=== PATIENT | female | born 1935 | race Caucasian/White ===

== ENCOUNTER 2024-06-27 17:28 | Inpatient (IN) | payer MEDICARE, OTHER ==
[~2024-06-27] VITALS: Ht 152.4 cm; Wt 78.2 kg
[~2024-06-27 17:28] MED LIST: ACET-3117 PO; AMLO-212 PO; ATOR80TA PO; BLOO-668 IN; CARV6.252 PO; CEFT1VIA14 IV; GLIP10TA21 PO; INSU100V28 SQ; LOSA100T31 PO; METF-442 PO; PANT40TA49 PO; SERT50TA PO
[2024-06-27] MEDS ORDERED: [UNRECOGNIZED DRUG - CODE] IV (18:07)
[2024-06-27] MEDS ORDERED: ASPI-495 PO (18:15)
[2024-06-27] MEDS ORDERED: ALBU2.5V38 IH (18:15)
[2024-06-27] MEDS ORDERED: CLOP75TA15 PO (18:35)
[2024-06-27] MEDS ORDERED: DICY10CA13 PO (18:38)
[2024-06-27 18:41] VITALS: BP 158/51; TEMP 99.6; O2SAT 93
[2024-06-27] MEDS ORDERED: IV 0.45% SODIUM CHLORIDE 1000 ML BAG IV SCH (19:15)
[2024-06-27] MEDS ORDERED: ALBUTEROL SULFATE 2.5 MG/3 ML NEBU IH PRN (19:15)
[2024-06-27] MEDS ORDERED: ONDANSETRON 4 MG/2 ML VIAL IV PRN (20:15)
[2024-06-27] MEDS ORDERED: hydrALAZINE HCL 20 MG/1 ML VIAL IV PRN (20:30)
[2024-06-27] MEDS ORDERED: DEXTROSE 50% 50 ML DISP.SYRIN IV PRN (20:45)
[2024-06-27 21:03] VITALS: BP 139/41; TEMP 98.7; O2SAT 96
[2024-06-27] MEDS: ATORVASTATIN 40 MG TABLET PO SCH (21:40)
[2024-06-27] MEDS: AMLODIPINE 5 MG TABLET PO SCH (21:41)
[2024-06-27] MEDS ORDERED: levoFLOXacin 250MG /D5W 50 ML IV ONE (21:42)
[2024-06-27] MEDS: BLOOD SUGAR DIAGNOSTIC 1 EACH STRIP VI SCH (23:41)
[2024-06-27] MEDS: INSULIN REGULAR, HUMAN 1000 UNIT/10 ML VIAL SQ PRN (23:48)
[2024-06-28] VITALS (10 sets, daily range): BP systolic 94–142; BP diastolic 35–58; TEMP 97.4–98.5; O2SAT 70–99
[2024-06-28 01:07] LABS: *BLOOD, URINE 2+ (NEGATIVE); *CLARITY,URINE CLEAR (CLEAR); *COLOR,URINE YELLOW (YELLOW); *KETONES,URINE TRACE (NEGATIVE); *PROTEIN,URINE 2+ (NEGATIVE); *UROBILINOGEN,URINE 0.2 E.U./dl (NORMAL); LEUKOCYTE ESTERASE ,URINE NEGATIVE (NEGATIVE); NITRITE, URINE NEGATIVE (NEGATIVE); UGLUCOSE TRACE (NEGATIVE)
[2024-06-28 01:10] LABS: *BILIRUBIN,URIN 1+ (NEGATIVE)
[2024-06-28 01:14] LABS: BACTERIA,URINE MANY /HPF (NONE SEEN); SQUAMOUS EPITHELIAL CELL,UR MODERATE /HPF (NONE SEEN); URINE AMORPHOUS URATE MODERATE /HPF
[2024-06-28 01:15] LABS: COARSE GRANULAR CASTS,URINE 0-3 /LPF
[2024-06-28] MEDS ORDERED: ACETAMINOPHEN 325 MG TABLET PO PRN (05:30)
[2024-06-28] MEDS: IV 1/2NS 1000 ML 1,000 ML IV PRN (05:34)
[2024-06-28 06:24] LABS: ABG BASE EXCESS 0.8 mmol/L (-2.0-3.0); ABG HCO3 26.7 mmol/L (21.0-28.0); ABG PH 7.354 (7.350-7.450); ABG PO2 87.5 mmHg (83.0-108.0); ABG SITE RIGHT BRACHIAL; ABG TOTAL HEMOGLOBIN 9.7 G/dL (12.0-16.0); AaDO2 96.2 mmHg; MetHb 0.3 % (0.0-1.5); O2Hb 96.1 % (94.0-98.0)
[2024-06-28 07:27] LABS: BASOPHILS % (AUTO) 0.3 % (0.0-2.0); EOSINOPHILS # (AUTO) 0.2 K/uL (0.0-0.7); EOSINOPHILS % (AUTO) 2.3 % (0.0-7.0); HEMATOCRIT 26.4 % (31.2-41.9); HEMOGLOBIN 9.2 g/dL (10.9-14.3); LYMPHOCYTES # (AUTO) 1.4 K/uL (0.8-4.8); LYMPHOCYTES % (AUTO) 17.4 % (20.5-51.5); MEAN CORPUSCULAR HEMOGLOBIN 33.9 uug (24.7-32.8); MEAN CORPUSCULAR HGB CONC 35 g/dL (32.3-35.6); MEAN CORPUSCULAR VOLUME 97.4 fL (75.5-95.3); MONOCYTES # (AUTO) 0.7 K/uL (0.1-1.30); MONOCYTES % (AUTO) 8.9 % (0.0-11.0); NEUTROPHILS # (AUTO) 5.8 K/uL (1.8-8.9); NEUTROPHILS % (AUTO) 71.1 % (38.5-71.5); PLATELET COUNT (AUTO) 264 K/uL (179-408); RED BLOOD CELL COUNT(AUTO) 2.71 MIL/uL (3.63-4.92); WHITE BLOOD COUNT (AUTO) 8.1 K/uL (3.8-11.8)
[2024-06-28 07:43] LABS: DIFFERENTIAL COMMENT 1
[2024-06-28 07:56] LABS: ALANINE AMINOTRANSFERASE 7 U/L (14-59); ALKALINE PHOSPHATASE 78 U/L (50-136); ASPARTATE AMINOTRANSFERASE 9 U/L (15-37); BILIRUBIN,TOTAL 0.4 mg/dL (0.2-1.0); CALCIUM 7.6 mg/dL (8.5-10.1); CARBON DIOXIDE 29 mmol/L (21-32); CHLORIDE 106 mmol/L (98-107); CREATININE 1.5 mg/dL (0.6-1.3); GLUCOSE 86 mg/dL (74-106); MAGNESIUM 2.9 mg/dL (1.8-2.4); NT-PRO BNP 1629 pg/mL (0-125); PHOSPHOROUS 2.4 mg/dL (2.5-4.9); POTASSIUM 4.3 mmol/L (3.5-5.1); SODIUM SERUM 142 mmol/L (136-145); TOTAL PROTEIN, SERUM 5.7 g/dL (6.4-8.2); UREA NITROGEN, BLOOD 41 mg/dL (7-18)
[2024-06-28] MEDS: SERTRALINE HCL 50 MG TABLET PO SCH (08:26)
[2024-06-28] MEDS: glipiZIDE XL 5 MG TABCR PO SCH (08:26)
[2024-06-28] MEDS: CARVEDILOL 6.25 MG TABLET PO SCH (08:27)
[2024-06-28] MEDS: PANTOPRAZOLE SODIUM 40 MG TABLET.DR PO SCH (08:27)
[2024-06-28] MEDS: CLOPIDOGREL 75 MG TABLET PO SCH (08:28)
[2024-06-28] MEDS: ASPIRIN EC 81 MG TABLET.DR PO SCH (08:28)
[2024-06-28] MEDS ORDERED: PANTOPRAZOLE SODIUM 40 MG VIAL IV SCH (09:00)
[2024-06-28] MEDS: methylPREDNISolone SOD SUCC 40 MG/ML VIAL IV SCH (11:49)
[2024-06-28] MEDS: ALBUTEROL SULFATE 2.5 MG/3 ML NEBU NEB SCH (14:02)
[2024-06-28] MEDS: IPRATROPIUM BROMIDE 0.5 MG/2.5 ML NEBU NEB SCH (14:02)
[2024-06-28] MEDS ORDERED: NEUTRA PHOS PACKET PO SCH (15:30)
[2024-06-29] VITALS (11 sets, daily range): BP systolic 128–144; BP diastolic 42–49; TEMP 96.3–98.8; O2SAT 80–99
[2024-06-29 06:44] LABS: HEMATOCRIT 24.1 % (31.2-41.9); HEMOGLOBIN 8.5 g/dL (10.9-14.3); LYMPHOCYTES # (AUTO) 0.5 K/uL (0.8-4.8); LYMPHOCYTES % (AUTO) 5.9 % (20.5-51.5); MEAN CORPUSCULAR HEMOGLOBIN 34.2 uug (24.7-32.8); MEAN CORPUSCULAR HGB CONC 35 g/dL (32.3-35.6); MEAN CORPUSCULAR VOLUME 96.9 fL (75.5-95.3); MONOCYTES % (AUTO) 0.5 % (0.0-11.0); NEUTROPHILS # (AUTO) 7.3 K/uL (1.8-8.9); NEUTROPHILS % (AUTO) 93.6 % (38.5-71.5); PLATELET COUNT (AUTO) 253 K/uL (179-408); RED CELL DISTRIBUTION WIDTH 12.5 % (12.3-17.7); WHITE BLOOD COUNT (AUTO) 7.8 K/uL (3.8-11.8)
[2024-06-29 06:56] LABS: DIFFERENTIAL COMMENT 1; RED BLOOD CELL COUNT(AUTO) 2.49 MIL/uL (3.63-4.92)
[2024-06-29 07:03] LABS: CALCIUM 7.4 mg/dL (8.5-10.1); CARBON DIOXIDE 26 mmol/L (21-32); CHLORIDE 101 mmol/L (98-107); CREATININE 1.3 mg/dL (0.6-1.3); GLUCOSE 243 mg/dL (74-106); MAGNESIUM 2.6 mg/dL (1.8-2.4); PHOSPHOROUS 2.4 mg/dL (2.5-4.9); POTASSIUM 4.9 mmol/L (3.5-5.1); SODIUM SERUM 132 mmol/L (136-145); UREA NITROGEN, BLOOD 48 mg/dL (7-18)
[2024-06-29 07:12] LABS: LIPASE 32 U/L (16-77)
[2024-06-29 07:52] LABS: ABG BASE EXCESS -0.8 mmol/L (-2.0-3.0); ABG PCO2 29.4 mmHg (32.0-45.0); ABG PH 7.492 (7.350-7.450); ABG PO2 121.7 mmHg (83.0-108.0); ABG SITE LEFT BRACHIAL; ABG TOTAL HEMOGLOBIN 9.1 G/dL (12.0-16.0); AaDO2 98.7 mmHg; COHb 0.3 % (0.5-1.5); MetHb 0.2 % (0.0-1.5)
[2024-06-29] MEDS: NEUTRA PHOS PACKET PO ONE (17:20)
[2024-06-29] MEDS: GLUCERNA SHAKE 237 ML CAN PO SCH (17:21)
[2024-06-29] MEDS: methylPREDNISolone SOD SUCC 40 MG/ML VIAL IV SCH (20:18)
[2024-06-29] MEDS ORDERED: DEXTROSE 50% 50 ML DISP.SYRIN IV PRN (21:15)
[2024-06-29] MEDS: BLOOD SUGAR DIAGNOSTIC 1 EACH STRIP VI SCH (21:23)
[2024-06-29] MEDS: INSULIN REGULAR, HUMAN 1000 UNIT/10 ML VIAL SQ PRN (21:24)
[2024-06-30] VITALS (11 sets, daily range): BP systolic 123–135; BP diastolic 39–50; TEMP 97.2–98.5; O2SAT 95–100
[2024-06-30 07:36] LABS: BASOPHILS % (AUTO) 0.1 % (0.0-2.0); HEMATOCRIT 23.1 % (31.2-41.9); HEMOGLOBIN 8.2 g/dL (10.9-14.3); LYMPHOCYTES # (AUTO) 0.6 K/uL (0.8-4.8); LYMPHOCYTES % (AUTO) 5.9 % (20.5-51.5); MEAN CORPUSCULAR HEMOGLOBIN 33.7 uug (24.7-32.8); MEAN CORPUSCULAR HGB CONC 35 g/dL (32.3-35.6); MEAN CORPUSCULAR VOLUME 95.2 fL (75.5-95.3); MONOCYTES # (AUTO) 0.3 K/uL (0.1-1.30); MONOCYTES % (AUTO) 2.8 % (0.0-11.0); NEUTROPHILS # (AUTO) 8.9 K/uL (1.8-8.9); NEUTROPHILS % (AUTO) 91.2 % (38.5-71.5); PLATELET COUNT (AUTO) 269 K/uL (179-408); RED CELL DISTRIBUTION WIDTH 12.4 % (12.3-17.7); WHITE BLOOD COUNT (AUTO) 9.8 K/uL (3.8-11.8)
[2024-06-30 07:38] LABS: DIFFERENTIAL COMMENT 1; RED BLOOD CELL COUNT(AUTO) 2.43 MIL/uL (3.63-4.92)
[2024-06-30 07:59] LABS: ALANINE AMINOTRANSFERASE 17 U/L (14-59); ALBUMIN 1.9 g/dL (3.4-5.0); ALKALINE PHOSPHATASE 67 U/L (50-136); ASPARTATE AMINOTRANSFERASE 8 U/L (15-37); BILIRUBIN,DIRECT 0.1 mg/dL (0.0-0.2); BILIRUBIN,TOTAL 0.2 mg/dL (0.2-1.0); CALCIUM 6.7 mg/dL (8.5-10.1); CARBON DIOXIDE 27 mmol/L (21-32); CHLORIDE 101 mmol/L (98-107); CREATININE 1.3 mg/dL (0.6-1.3); GLUCOSE 297 mg/dL (74-106); MAGNESIUM 2.7 mg/dL (1.8-2.4); PHOSPHOROUS 2.4 mg/dL (2.5-4.9); POTASSIUM 4.7 mmol/L (3.5-5.1); SODIUM SERUM 132 mmol/L (136-145); TOTAL PROTEIN, SERUM 5.4 g/dL (6.4-8.2); UREA NITROGEN, BLOOD 50 mg/dL (7-18)
[2024-06-30] MEDS ORDERED: REMEDY ESSENTIAL ZINC PASTE 113 GM TOP PRN (13:00)
[2024-06-30] MEDS: NEUTRA PHOS PACKET PO ONE (17:08)
[2024-06-30] MEDS: levoFLOXacin 250 MG TABLET PO SCH (21:34)
[2024-06-30] MEDS: INSULIN GLARGINE,HUM 300 UNITS/3 ML CARTRIDGE SQ SCH (21:43)
[2024-06-30] MEDS: REMEDY ESSENTIAL ZINC PASTE 113 GM TOP SCH (21:47)
[2024-07-01] VITALS (8 sets, daily range): BP systolic 103–142; BP diastolic 43–92; TEMP 97.5–98.1; O2SAT 94–99
[2024-07-01 07:46] LABS: BASOPHILS % (AUTO) 0.2 % (0.0-2.0); HEMATOCRIT 23.8 % (31.2-41.9); HEMOGLOBIN 8.3 g/dL (10.9-14.3); LYMPHOCYTES # (AUTO) 1.4 K/uL (0.8-4.8); LYMPHOCYTES % (AUTO) 11.9 % (20.5-51.5); MEAN CORPUSCULAR HEMOGLOBIN 33.2 uug (24.7-32.8); MEAN CORPUSCULAR HGB CONC 35 g/dL (32.3-35.6); MEAN CORPUSCULAR VOLUME 95.3 fL (75.5-95.3); MONOCYTES % (AUTO) 8.6 % (0.0-11.0); NEUTROPHILS # (AUTO) 9.6 K/uL (1.8-8.9); NEUTROPHILS % (AUTO) 79.3 % (38.5-71.5); PLATELET COUNT (AUTO) 309 K/uL (179-408); RED CELL DISTRIBUTION WIDTH 12.3 % (12.3-17.7); WHITE BLOOD COUNT (AUTO) 12.2 K/uL (3.8-11.8)
[2024-07-01 07:58] LABS: DIFFERENTIAL COMMENT 1
[2024-07-01 08:09] LABS: CALCIUM 6.7 mg/dL (8.5-10.1); CARBON DIOXIDE 26 mmol/L (21-32); CHLORIDE 104 mmol/L (98-107); CREATININE 1.4 mg/dL (0.6-1.3); GLUCOSE 248 mg/dL (74-106); MAGNESIUM 2.8 mg/dL (1.8-2.4); PHOSPHOROUS 2.3 mg/dL (2.5-4.9); POTASSIUM 4.7 mmol/L (3.5-5.1); SODIUM SERUM 138 mmol/L (136-145); UREA NITROGEN, BLOOD 58 mg/dL (7-18)
[2024-07-01] MEDS: methylPREDNISolone SOD SUCC 40 MG/ML VIAL IV SCH (08:28)
[2024-07-01] MEDS ORDERED: INSU100V7 SQ (13:52)
[2024-07-01] MEDS ORDERED: LEVO250T59 PO (13:52)
[2024-07-01] MEDS: NEUTRA PHOS PACKET PO ONE (15:39)
[2024-07-01] MEDS ORDERED: ALBU2.5V38 IH (18:04)
[2024-07-01] MEDS ORDERED: NUT.237L36 PO (18:04)
[2024-07-01] MEDS ORDERED: PETR113P TP (18:04)
[2024-07-01] MEDS ORDERED: IPRA0.2S48 NEB (18:04)
== END 2024-07-01 17:21 | DRG 189 ==
LOC: TELE3 17:28 → MEDSURG3 06-30 10:10
PROVIDERS: ADMIT Internal Medicine; ATTEND Internal Medicine
PROC: 5A09357 Assistance with Respiratory Ventilation, Less than 24 Consecutive Hours, Continuous Positive Airway Pressure (ICD-10-PCS; principal; 2024-06-27)
DX: J96.02 Acute respiratory failure with hypercapnia (principal); G92.8 Other toxic encephalopathy; N17.0 Acute kidney failure with tubular necrosis; E43 Unspecified severe protein-calorie malnutrition; J45.901 Unspecified asthma with (acute) exacerbation; N39.0 Urinary tract infection, site not specified; I67.89 Other cerebrovascular disease; E87.1 Hypo-osmolality and hyponatremia; D68.59 Other primary thrombophilia; J96.01 Acute respiratory failure with hypoxia; E11.65 Type 2 diabetes mellitus with hyperglycemia; E66.9 Obesity, unspecified; Z68.33 Body mass index [BMI] 33.0-33.9, adult; Z71.3 Dietary counseling and surveillance; E78.5 Hyperlipidemia, unspecified; E86.9 Volume depletion, unspecified; D53.9 Nutritional anemia, unspecified; I16.0 Hypertensive urgency; I10 Essential (primary) hypertension; Z86.73 Personal history of transient ischemic attack (TIA), and cerebral infarction without residual deficits; Z88.0 Allergy status to penicillin; Z90.49 Acquired absence of other specified parts of digestive tract; Z90.710 Acquired absence of both cervix and uterus; Z98.42 Cataract extraction status, left eye; Z98.41 Cataract extraction status, right eye; M89.8X9 Other specified disorders of bone, unspecified site; Z79.02 Long term (current) use of antithrombotics/antiplatelets; E88.09 Other disorders of plasma-protein metabolism, not elsewhere classified; E87.5 Hyperkalemia; Z86.16 Personal history of COVID-19; B96.89 Other specified bacterial agents as the cause of diseases classified elsewhere; R10.84 Generalized abdominal pain; G89.29 Other chronic pain; J20.9 Acute bronchitis, unspecified
CPT/HCPCS: 36415; 36600; 82785; 82803; 83690; 83735; 84100; 84484; 85025; 94640; 94660; 94664; 94760; 99082-TC; A4606; G0378; J1815; J1956; J2919; J3590; J8499

== ENCOUNTER 2024-07-01 17:58 | Inpatient (IN) | payer MEDICARE, OTHER ==
[~2024-07-01] VITALS: Ht 160 cm; Wt 80.7 kg
[~2024-07-01 17:58] MED LIST changes: +ALBU2.5V38 IH; +ASPI-495 PO; -BLOO-668 IN; -CEFT1VIA14 IV; +CLOP75TA15 PO; +DICY10CA13 PO; -INSU100V28 SQ; +INSU100V7 SQ; +LEVO250T59 PO; +[UNRECOGNIZED DRUG - CODE] IV
[2024-07-01] MEDS ORDERED: ALBU2.5V38 IH (18:04)
[2024-07-01] MEDS ORDERED: IPRA0.2S48 NEB (18:04)
[2024-07-01] MEDS ORDERED: NUT.237L36 PO (18:04)
[2024-07-01] MEDS ORDERED: PETR113P TP (18:04)
[2024-07-01] MEDS ORDERED: INSU100V28 SQ (18:04)
[2024-07-01] MEDS ORDERED: DEXTROSE 50% 50 ML DISP.SYRIN IV PRN (18:30)
[2024-07-01] MEDS: ALBUTEROL SULFATE 2.5 MG/3 ML NEBU NEB SCH (19:30)
[2024-07-01] MEDS: IPRATROPIUM BROMIDE 0.5 MG/2.5 ML NEBU NEB SCH (19:30)
[2024-07-01] MEDS ORDERED: REMEDY ESSENTIAL ZINC PASTE 113 GM TOP PRN (19:45)
[2024-07-01 20:00] VITALS: BP 154/74; TEMP 98; O2SAT 98
[2024-07-01 20:10] VITALS: O2SAT 99
[2024-07-01] MEDS: ATORVASTATIN 40 MG TABLET PO SCH (21:09)
[2024-07-01] MEDS: levoFLOXacin 250 MG TABLET PO SCH (21:10)
[2024-07-01] MEDS: BLOOD SUGAR DIAGNOSTIC 1 EACH STRIP VI SCH (21:15)
[2024-07-01] MEDS: INSULIN REGULAR, HUMAN 1000 UNIT/10 ML VIAL SQ PRN (21:19)
[2024-07-01] MEDS: INSULIN GLARGINE,HUM 300 UNITS/3 ML CARTRIDGE SQ SCH (21:21)
[2024-07-01] MEDS: AMLODIPINE 5 MG TABLET PO SCH (21:46)
[2024-07-02] VITALS (9 sets, daily range): BP systolic 109–143; BP diastolic 35–54; TEMP 98.1–98.6; O2SAT 96–99
[2024-07-02] MEDS ORDERED: ALBUTEROL SULFATE 2.5 MG/3 ML NEBU NEB PRN
[2024-07-02] MEDS: DICYCLOMINE HCL 10 MG CAPSULE PO SCH (00:57)
[2024-07-02] MEDS: PANTOPRAZOLE SODIUM 40 MG TABLET.DR PO SCH (06:00)
[2024-07-02] MEDS: METFORMIN HCL 500 MG TABLET PO SCH (08:44)
[2024-07-02] MEDS: CARVEDILOL 6.25 MG TABLET PO SCH (08:44)
[2024-07-02] MEDS: GLUCERNA 1.2 1000ML LIQUID PO SCH (09:00)
[2024-07-02] MEDS: SERTRALINE HCL 50 MG TABLET PO SCH (11:09)
[2024-07-02] MEDS: LOSARTAN POTASSIUM 50 MG TABLET PO SCH (11:09)
[2024-07-02] MEDS: CLOPIDOGREL 75 MG TABLET PO SCH (11:09)
[2024-07-02] MEDS: glipiZIDE XL 5 MG TABCR PO SCH (11:11)
[2024-07-02] MEDS: ASPIRIN EC 81 MG TABLET.DR PO SCH (11:12)
[2024-07-02] MEDS ORDERED: FUROSEMIDE 40 MG/4 ML VIAL IV ONE (19:15)
[2024-07-02 19:53] LABS: ABG BASE EXCESS 0.8 mmol/L (-2.0-3.0); ABG HCO3 24.3 mmol/L (21.0-28.0); ABG PCO2 34.7 mmHg (32.0-45.0); ABG PH 7.464 (7.350-7.450); ABG PO2 84.9 mmHg (83.0-108.0); ABG SITE RIGHT BRACHIAL; ABG TOTAL HEMOGLOBIN 9.3 G/dL (12.0-16.0); COHb 0.3 % (0.5-1.5); MetHb 0.3 % (0.0-1.5); O2Hb 95.7 % (94.0-98.0)
[2024-07-02] MEDS: FUROSEMIDE 40 MG TABLET PO SCH (20:19)
[2024-07-02] MEDS: ACETAMINOPHEN 325 MG TABLET PO PRN (23:13)
[2024-07-03 00:12] VITALS: TEMP 97.8
[2024-07-03] MEDS ORDERED: MAG HYDROX/AL HYDROX/SIMETH 30 ML LIQUID UDC PO PRN (00:30)
[2024-07-03] MEDS: MAG HYDROX/AL HYDROX/SIMETH 30 ML LIQUID UDC PO PRN (01:27)
== END 2024-07-03 02:30 | disposition short-term general hospital (02) | DRG 189 ==
PROVIDERS: ADMIT Physical Medicine & Rehabilitation; ATTEND Physical Medicine & Rehabilitation Pain Medicine
DX: J96.01 Acute respiratory failure with hypoxia (principal); E43 Unspecified severe protein-calorie malnutrition; G92.8 Other toxic encephalopathy; N17.0 Acute kidney failure with tubular necrosis; D68.59 Other primary thrombophilia; J45.901 Unspecified asthma with (acute) exacerbation; N39.0 Urinary tract infection, site not specified; J96.02 Acute respiratory failure with hypercapnia; D53.9 Nutritional anemia, unspecified; E11.65 Type 2 diabetes mellitus with hyperglycemia; E66.9 Obesity, unspecified; E78.5 Hyperlipidemia, unspecified; G89.29 Other chronic pain; I10 Essential (primary) hypertension; I16.0 Hypertensive urgency; J45.909 Unspecified asthma, uncomplicated; Z68.33 Body mass index [BMI] 33.0-33.9, adult; Z86.73 Personal history of transient ischemic attack (TIA), and cerebral infarction without residual deficits; Z88.0 Allergy status to penicillin; E86.9 Volume depletion, unspecified; N14.11 Contrast-induced nephropathy; T50.8X5A Adverse effect of diagnostic agents, initial encounter; Y92.239 Unspecified place in hospital as the place of occurrence of the external cause; E88.09 Other disorders of plasma-protein metabolism, not elsewhere classified; M89.8X9 Other specified disorders of bone, unspecified site; Z79.02 Long term (current) use of antithrombotics/antiplatelets; I08.0 Rheumatic disorders of both mitral and aortic valves; R10.9 Unspecified abdominal pain
CPT/HCPCS: 36600; 82803; 94640; 94760; A4606; A4663; J1815; J1940; J3590; J8499

== ENCOUNTER 2024-07-03 03:01 | Inpatient (IN) | payer MEDICARE, OTHER ==
[~2024-07-03] VITALS: Ht 154.9 cm; Wt 85.7 kg
[~2024-07-03 03:01] MED LIST changes: +INSU100V28 SQ; +IPRA0.2S48 NEB; +NUT.237L36 PO; +PETR113P TP; -[UNRECOGNIZED DRUG - CODE] IV
[2024-07-03] MEDS ORDERED: KETAMINE HCL 500 MG/5 ML VIAL ONE (04:05)
[2024-07-03] MEDS ORDERED: ONDANSETRON ODT 4 MG TAB.RAPDIS ONE (04:06)
[2024-07-03] MEDS: ONDANSETRON ODT 4 MG TAB.RAPDIS SL ONE (04:24)
[2024-07-03] MEDS: KETAMINE HCL 500 MG/10 ML INJ IM ONE (04:24)
[2024-07-03 04:38] LABS: BASOPHILS # (AUTO) 0.1 K/UL (0.0-0.2); BASOPHILS % (AUTO) 0.5 % (0.0-2.0); DIFFERENTIAL COMMENT 1; EOSINOPHILS # (AUTO) 0.2 K/uL (0.0-0.7); EOSINOPHILS % (AUTO) 0.9 % (0.0-7.0); HEMATOCRIT 29.3 % (31.2-41.9); HEMOGLOBIN 9.2 g/dL (10.9-14.3); LYMPHOCYTES # (AUTO) 3.2 K/uL (0.8-4.8); LYMPHOCYTES % (AUTO) 15.1 % (20.5-51.5); MEAN CORPUSCULAR HEMOGLOBIN 30.5 uug (24.7-32.8); MEAN CORPUSCULAR HGB CONC 32 g/dL (32.3-35.6); MEAN CORPUSCULAR VOLUME 96.8 fL (75.5-95.3); MONOCYTES # (AUTO) 1.2 K/uL (0.1-1.30); MONOCYTES % (AUTO) 5.6 % (0.0-11.0); NEUTROPHILS # (AUTO) 16.6 K/uL (1.8-8.9); NEUTROPHILS % (AUTO) 77.9 % (38.5-71.5); PLATELET COUNT (AUTO) 368 K/uL (179-408); RED BLOOD CELL COUNT(AUTO) 3.02 MIL/uL (3.63-4.92); RED CELL DISTRIBUTION WIDTH 12.8 % (12.3-17.7); WHITE BLOOD COUNT (AUTO) 21.3 K/uL (3.8-11.8)
[2024-07-03 05:18] LABS: ALANINE AMINOTRANSFERASE 13 U/L (14-59); ALBUMIN 2.2 g/dL (3.4-5.0); ALKALINE PHOSPHATASE 73 U/L (50-136); ASPARTATE AMINOTRANSFERASE 13 U/L (15-37); BILIRUBIN,DIRECT 0.1 mg/dL (0.0-0.2); BILIRUBIN,TOTAL 0.3 mg/dL (0.2-1.0); CALCIUM 6.9 mg/dL (8.5-10.1); CARBON DIOXIDE 26 mmol/L (21-32); CHLORIDE 108 mmol/L (98-107); CREATININE 1.5 mg/dL (0.6-1.3); GLUCOSE 83 mg/dL (74-106); LIPASE 109 U/L (16-77); POTASSIUM 4.4 mmol/L (3.5-5.1); SODIUM SERUM 145 mmol/L (136-145); TOTAL PROTEIN, SERUM 5.6 g/dL (6.4-8.2); UREA NITROGEN, BLOOD 55 mg/dL (7-18)
[2024-07-03 05:35] LABS: LACTIC ACID 2.5 mmol/L (0.4-2.0)
[2024-07-03] MEDS ORDERED: CEFTRIAXONE 1 G VIAL ONE (05:44)
[2024-07-03] MEDS: METRONIDAZOLE 500 MG/NS 100 ML PIGGYBACK IV ONE (05:45)
[2024-07-03] MEDS: IV NORMAL SALINE 1000 ML BAG IV ONE (05:49)
[2024-07-03] MEDS: CEFTRIAXONE 1 G in IV DEXTROSE 5% 50 ML IV ONE (05:49)
[2024-07-03] MEDS ORDERED: METRONIDAZOLE 500 MG/NS 100ML 100 ML IV ONE ×2 (06:06→10:03)
[2024-07-03] MEDS ORDERED: FENTANYL CITRATE 100 MCG/2 ML AMPUL ONE (07:00)
[2024-07-03] MEDS: FENTANYL CITRATE 100 MCG/2 ML AMPUL IV ONE (07:04)
[2024-07-03 09:15] LABS: *BILIRUBIN,URIN NEGATIVE (NEGATIVE); *BLOOD, URINE NEGATIVE (NEGATIVE); *CLARITY,URINE CLEAR (CLEAR); *COLOR,URINE YELLOW (YELLOW); *KETONES,URINE NEGATIVE (NEGATIVE); *PROTEIN,URINE NEGATIVE (NEGATIVE); *UROBILINOGEN,URINE 0.2 E.U./dl (NORMAL); LEUKOCYTE ESTERASE ,URINE NEGATIVE (NEGATIVE); NITRITE, URINE NEGATIVE (NEGATIVE); PH,URINE 5.5 (5.0-8.0); UGLUCOSE NEGATIVE (NEGATIVE)
[2024-07-03] MEDS ORDERED: HYDROMORPHONE 1 MG/1 ML DISP.SYRIN IV PRN (09:45)
[2024-07-03] MEDS ORDERED: ALBUTEROL SULFATE 2.5 MG/3 ML NEBU IH PRN (09:45)
[2024-07-03] MEDS ORDERED: Medication Not On Formulary EA (Acetaminophen 1 TAB) PO PRN (09:45)
[2024-07-03] MEDS ORDERED: MAGNESIUM HYDROXIDE 30 ML LIQUID UDC PO PRN (09:45)
[2024-07-03] MEDS ORDERED: REMEDY ESSENTIAL ZINC PASTE 113 GM TP PRN (09:45)
[2024-07-03] MEDS ORDERED: levoFLOXacin 750MG/D5W 750 MG in PREMIXED 1 EACH IV SCH (09:45)
[2024-07-03] MEDS ORDERED: DEXTROSE 50% 50 ML DISP.SYRIN IV PRN (09:45)
[2024-07-03] MEDS ORDERED: CIPROFLOXACIN IV 400 MG in PREMIXED 1 EACH IV SCH (10:30)
[2024-07-03] MEDS ORDERED: CIPROFLOXACIN LACTATE/D5W 400 MG/200 ML PIGGYBACK IV ONE (10:41)
[2024-07-03] MEDS: BLOOD SUGAR DIAGNOSTIC 1 EACH STRIP VI SCH (11:51)
[2024-07-03] MEDS ORDERED: CIPROFLOXACIN HCL 250 MG TABLET ONE (12:13)
[2024-07-03] MEDS: CIPROFLOXACIN HCL 250 MG TABLET PO SCH (12:16)
[2024-07-03] MEDS ORDERED: METRONIDAZOLE 500 MG TABLET ONE (12:35)
[2024-07-03] MEDS: METRONIDAZOLE 500 MG TABLET PO ONE (12:38)
[2024-07-03] MEDS: ALBUTEROL SULFATE 2.5 MG/3 ML NEBU IH SCH (13:50)
[2024-07-03] MEDS: IPRATROPIUM BROMIDE 0.5 MG/2.5 ML NEBU NEB SCH (13:50)
[2024-07-03 14:05] VITALS: O2SAT 95
[2024-07-03 14:15] VITALS: O2SAT 98
[2024-07-03] MEDS ORDERED: ALBUTEROL SULFATE 2.5 MG/3 ML NEBU ONE (14:50)
[2024-07-03] MEDS ORDERED: IPRATROPIUM BROMIDE 0.5 MG/2.5 ML NEBU ONE (14:51)
[2024-07-03 15:12] LABS: HIV-1 p24 ANTIGEN NON REACTIVE (NONREACTIVE); HIV-1/2 ANTIBODY NON REACTIVE (NONREACTIVE)
[2024-07-03] MEDS: CARVEDILOL 6.25 MG TABLET PO SCH (18:25)
[2024-07-03] MEDS ORDERED: CARVEDILOL 6.25 MG TABLET ONE (18:26)
[2024-07-03 19:20] VITALS: O2SAT 96
[2024-07-03 19:30] VITALS: O2SAT 98; O2SAT 99
[2024-07-03 20:00] VITALS: BP 109/43; TEMP 98.3; O2SAT 95
[2024-07-03] MEDS: AMLODIPINE 5 MG TABLET PO SCH (21:00)
[2024-07-03] MEDS ORDERED: Medication Not On Formulary EA (Atorvastatin Calcium (Lipitor) 80 MG) PO SCH (21:00)
[2024-07-03] MEDS: ATORVASTATIN 40 MG TABLET PO SCH (21:27)
[2024-07-03] MEDS: IV NS 1000 ML 1,000 ML IV PRN (22:05)
[2024-07-03] MEDS: METRONIDAZOLE 500 MG/NS 100ML 500 MG in PREMIXED 1 EACH IV SCH (22:06)
[2024-07-04] VITALS (12 sets, daily range): BP systolic 110–146; BP diastolic 45–57; TEMP 98–98.9; O2SAT 95–99
[2024-07-04] MEDS: CIPROFLOXACIN HCL 250 MG TABLET PO SCH ×2 (06:00→09:37)
[2024-07-04] MEDS ORDERED: METRONIDAZOLE 500 MG/NS 100ML 100 ML IV ONE (06:06)
[2024-07-04 07:12] LABS: BASOPHILS % (AUTO) 0.1 % (0.0-2.0); EOSINOPHILS # (AUTO) 0.2 K/uL (0.0-0.7); EOSINOPHILS % (AUTO) 1.3 % (0.0-7.0); HEMATOCRIT 25.6 % (31.2-41.9); HEMOGLOBIN 8.7 g/dL (10.9-14.3); LYMPHOCYTES # (AUTO) 1.7 K/uL (0.8-4.8); LYMPHOCYTES % (AUTO) 12.3 % (20.5-51.5); MEAN CORPUSCULAR HEMOGLOBIN 33.1 uug (24.7-32.8); MEAN CORPUSCULAR HGB CONC 34 g/dL (32.3-35.6); MEAN CORPUSCULAR VOLUME 96.9 fL (75.5-95.3); MONOCYTES # (AUTO) 0.7 K/uL (0.1-1.30); MONOCYTES % (AUTO) 5.2 % (0.0-11.0); NEUTROPHILS # (AUTO) 11.2 K/uL (1.8-8.9); NEUTROPHILS % (AUTO) 81.1 % (38.5-71.5); PLATELET COUNT (AUTO) 336 K/uL (179-408); RED BLOOD CELL COUNT(AUTO) 2.64 MIL/uL (3.63-4.92); RED CELL DISTRIBUTION WIDTH 12.8 % (12.3-17.7); WHITE BLOOD COUNT (AUTO) 13.8 K/uL (3.8-11.8)
[2024-07-04 07:20] LABS: DIFFERENTIAL COMMENT 1
[2024-07-04 07:32] LABS: ALANINE AMINOTRANSFERASE 14 U/L (14-59); ALBUMIN 1.7 g/dL (3.4-5.0); ALKALINE PHOSPHATASE 70 U/L (50-136); ASPARTATE AMINOTRANSFERASE 6 U/L (15-37); BILIRUBIN,TOTAL 0.3 mg/dL (0.2-1.0); C-REACTIVE PROTEIN 8.25 mg/dL (0.00-0.30); CARBON DIOXIDE 27 mmol/L (21-32); CHLORIDE 110 mmol/L (98-107); GLUCOSE 66 mg/dL (74-106); MAGNESIUM 2.2 mg/dL (1.8-2.4); PHOSPHOROUS 2.5 mg/dL (2.5-4.9); SODIUM SERUM 143 mmol/L (136-145); TOTAL PROTEIN, SERUM 4.7 g/dL (6.4-8.2); UREA NITROGEN, BLOOD 36 mg/dL (7-18)
[2024-07-04 07:44] LABS: LIPASE 54 U/L (16-77)
[2024-07-04 08:06] LABS: HEPATITIS B CORE AB, TOTAL Negative (Negative); HEPATITIS B SURFACE AG Negative (Negative); HEPATITIS C VIRUS ANTIBODY Non Reactive (Non Reactive)
[2024-07-04] MEDS: PANTOPRAZOLE SODIUM 40 MG VIAL IV SCH (09:38)
[2024-07-04] MEDS: SERTRALINE HCL 50 MG TABLET PO SCH (09:38)
[2024-07-05] VITALS (11 sets, daily range): BP systolic 122–137; BP diastolic 43–48; TEMP 97.7–98.6; O2SAT 94–99
[2024-07-05 07:24] LABS: BASOPHILS % (AUTO) 0.1 % (0.0-2.0); EOSINOPHILS # (AUTO) 0.2 K/uL (0.0-0.7); EOSINOPHILS % (AUTO) 1.5 % (0.0-7.0); HEMATOCRIT 24.7 % (31.2-41.9); HEMOGLOBIN 8.5 g/dL (10.9-14.3); LYMPHOCYTES # (AUTO) 1.6 K/uL (0.8-4.8); MEAN CORPUSCULAR HEMOGLOBIN 33.9 uug (24.7-32.8); MEAN CORPUSCULAR HGB CONC 35 g/dL (32.3-35.6); MEAN CORPUSCULAR VOLUME 97.9 fL (75.5-95.3); MONOCYTES # (AUTO) 0.7 K/uL (0.1-1.30); MONOCYTES % (AUTO) 5.3 % (0.0-11.0); NEUTROPHILS # (AUTO) 10.1 K/uL (1.8-8.9); NEUTROPHILS % (AUTO) 80.1 % (38.5-71.5); PLATELET COUNT (AUTO) 351 K/uL (179-408); RED BLOOD CELL COUNT(AUTO) 2.52 MIL/uL (3.63-4.92); RED CELL DISTRIBUTION WIDTH 12.9 % (12.3-17.7); WHITE BLOOD COUNT (AUTO) 12.6 K/uL (3.8-11.8)
[2024-07-05 07:43] LABS: DIFFERENTIAL COMMENT 1
[2024-07-05] MEDS: INSULIN REGULAR, HUMAN 1000 UNIT/10 ML VIAL SQ PRN (11:42)
[2024-07-05] MEDS: LACTULOSE 20 G/30 ML LIQUID UDC PO ONE (12:34)
[2024-07-05] MEDS: METOCLOPRAMIDE HCL 10 MG/2 ML VIAL IV SCH (12:34)
[2024-07-05] MEDS: MIRALAX 17 GM POWD.PACK PO SCH (12:34)
[2024-07-06] VITALS (9 sets, daily range): BP systolic 134–140; BP diastolic 45–53; TEMP 96.9–98.9; O2SAT 94–99
[2024-07-06 07:01] LABS: BASOPHILS % (AUTO) 0.2 % (0.0-2.0); EOSINOPHILS # (AUTO) 0.3 K/uL (0.0-0.7); EOSINOPHILS % (AUTO) 2.2 % (0.0-7.0); HEMOGLOBIN 8.3 g/dL (10.9-14.3); LYMPHOCYTES # (AUTO) 1.6 K/uL (0.8-4.8); LYMPHOCYTES % (AUTO) 13.2 % (20.5-51.5); MEAN CORPUSCULAR HEMOGLOBIN 33.4 uug (24.7-32.8); MEAN CORPUSCULAR HGB CONC 35 g/dL (32.3-35.6); MEAN CORPUSCULAR VOLUME 96.9 fL (75.5-95.3); MONOCYTES # (AUTO) 0.8 K/uL (0.1-1.30); NEUTROPHILS # (AUTO) 9.3 K/uL (1.8-8.9); NEUTROPHILS % (AUTO) 77.4 % (38.5-71.5); PLATELET COUNT (AUTO) 349 K/uL (179-408); RED CELL DISTRIBUTION WIDTH 12.8 % (12.3-17.7)
[2024-07-06 07:07] LABS: DIFFERENTIAL COMMENT 1; RED BLOOD CELL COUNT(AUTO) 2.48 MIL/uL (3.63-4.92)
[2024-07-06 07:17] LABS: CALCIUM 6.1 mg/dL (8.5-10.1); CARBON DIOXIDE 24 mmol/L (21-32); CHLORIDE 112 mmol/L (98-107); GLUCOSE 135 mg/dL (74-106); POTASSIUM 3.4 mmol/L (3.5-5.1); SODIUM SERUM 145 mmol/L (136-145); UREA NITROGEN, BLOOD 31 mg/dL (7-18)
[2024-07-06] MEDS: POTASSIUM CHLORIDE 20 MEQ POWDER PACKET PO ONE (08:59)
[2024-07-06 09:27] LABS: ABG BASE EXCESS -4.1 mmol/L (-2.0-3.0); ABG HCO3 19.4 mmol/L (21.0-28.0); ABG PCO2 30.1 mmHg (32.0-45.0); ABG PH 7.428 (7.350-7.450); ABG PO2 71.1 mmHg (83.0-108.0); ABG SITE RIGHT RADIAL; AaDO2 94.9 mmHg; COHb 0.3 % (0.5-1.5)
[2024-07-06] MEDS ORDERED: MIRALAX 17 GM POWD.PACK PO SCH (10:45)
[2024-07-06] MEDS: HYDROCODONE/APAP 10-325 MG TABLET PO PRN (12:04)
[2024-07-06] MEDS: LACTULOSE 20 G/30 ML LIQUID UDC PO ONE (12:59)
[2024-07-06] MEDS: LIDOCAINE 5% PATCH TD SCH (12:59)
[2024-07-06] MEDS: ONDANSETRON 4 MG/2 ML VIAL IV PRN (21:00)
[2024-07-07] VITALS (9 sets, daily range): BP systolic 125–136; BP diastolic 42–43; TEMP 98.2–98.6; O2SAT 93–99
[2024-07-07 06:37] LABS: BASOPHILS % (AUTO) 0.4 % (0.0-2.0); DIFFERENTIAL COMMENT 1; EOSINOPHILS # (AUTO) 0.3 K/uL (0.0-0.7); EOSINOPHILS % (AUTO) 2.3 % (0.0-7.0); HEMATOCRIT 25.8 % (31.2-41.9); HEMOGLOBIN 8.9 g/dL (10.9-14.3); LYMPHOCYTES # (AUTO) 1.8 K/uL (0.8-4.8); LYMPHOCYTES % (AUTO) 14.9 % (20.5-51.5); MEAN CORPUSCULAR HEMOGLOBIN 33.7 uug (24.7-32.8); MEAN CORPUSCULAR HGB CONC 34 g/dL (32.3-35.6); MEAN CORPUSCULAR VOLUME 98.4 fL (75.5-95.3); MONOCYTES % (AUTO) 8.5 % (0.0-11.0); NEUTROPHILS # (AUTO) 8.7 K/uL (1.8-8.9); NEUTROPHILS % (AUTO) 73.9 % (38.5-71.5); PLATELET COUNT (AUTO) 393 K/uL (179-408); RED BLOOD CELL COUNT(AUTO) 2.62 MIL/uL (3.63-4.92); RED CELL DISTRIBUTION WIDTH 12.7 % (12.3-17.7); WHITE BLOOD COUNT (AUTO) 11.8 K/uL (3.8-11.8)
[2024-07-07 06:54] LABS: CALCIUM 6.4 mg/dL (8.5-10.1); CARBON DIOXIDE 24 mmol/L (21-32); CHLORIDE 115 mmol/L (98-107); CREATININE 1.1 mg/dL (0.6-1.3); GLUCOSE 178 mg/dL (74-106); MAGNESIUM 2.2 mg/dL (1.8-2.4); PHOSPHOROUS 2.1 mg/dL (2.5-4.9); POTASSIUM 4.3 mmol/L (3.5-5.1); SODIUM SERUM 148 mmol/L (136-145); UREA NITROGEN, BLOOD 31 mg/dL (7-18)
[2024-07-07] MEDS: GLUCERNA SHAKE 237 ML CAN PO SCH (08:53)
[2024-07-07] MEDS: NEUTRA PHOS PACKET PO ONE (14:05)
[2024-07-07] MEDS: BUDESONIDE 0.5 MG/2 ML NEBU NEB SCH (19:49)
[2024-07-08] VITALS (9 sets, daily range): BP systolic 129–150; BP diastolic 49–52; TEMP 98.2–98.6; O2SAT 94–99
[2024-07-08 07:34] LABS: BASOPHILS % (AUTO) 0.4 % (0.0-2.0); EOSINOPHILS # (AUTO) 0.2 K/uL (0.0-0.7); EOSINOPHILS % (AUTO) 2.3 % (0.0-7.0); HEMATOCRIT 25.3 % (31.2-41.9); LYMPHOCYTES # (AUTO) 1.5 K/uL (0.8-4.8); MEAN CORPUSCULAR HEMOGLOBIN 34.4 uug (24.7-32.8); MEAN CORPUSCULAR HGB CONC 36 g/dL (32.3-35.6); MEAN CORPUSCULAR VOLUME 96.8 fL (75.5-95.3); MONOCYTES # (AUTO) 0.9 K/uL (0.1-1.30); MONOCYTES % (AUTO) 7.8 % (0.0-11.0); NEUTROPHILS # (AUTO) 8.3 K/uL (1.8-8.9); NEUTROPHILS % (AUTO) 75.5 % (38.5-71.5); PLATELET COUNT (AUTO) 390 K/uL (179-408); RED BLOOD CELL COUNT(AUTO) 2.61 MIL/uL (3.63-4.92); RED CELL DISTRIBUTION WIDTH 12.7 % (12.3-17.7)
[2024-07-08 07:45] LABS: DIFFERENTIAL COMMENT 1
[2024-07-08 07:55] LABS: CALCIUM 6.3 mg/dL (8.5-10.1); CARBON DIOXIDE 23 mmol/L (21-32); CHLORIDE 116 mmol/L (98-107); CREATININE 1.1 mg/dL (0.6-1.3); GLUCOSE 153 mg/dL (74-106); MAGNESIUM 2.2 mg/dL (1.8-2.4); PHOSPHOROUS 2.1 mg/dL (2.5-4.9); POTASSIUM 4.3 mmol/L (3.5-5.1); SODIUM SERUM 150 mmol/L (136-145); UREA NITROGEN, BLOOD 31 mg/dL (7-18)
[2024-07-08] MEDS: IV 1/2NS 1000 ML 1,000 ML IV SCH (08:59)
[2024-07-08] MEDS: NEUTRA PHOS PACKET PO ONE (17:20)
[2024-07-09] VITALS (9 sets, daily range): BP systolic 115–146; BP diastolic 42–53; TEMP 98.2–98.7; O2SAT 91–99
[2024-07-09 08:02] LABS: BASOPHILS # (AUTO) 0.1 K/UL (0.0-0.2); BASOPHILS % (AUTO) 0.7 % (0.0-2.0); EOSINOPHILS # (AUTO) 0.2 K/uL (0.0-0.7); EOSINOPHILS % (AUTO) 2.2 % (0.0-7.0); HEMATOCRIT 25.1 % (31.2-41.9); HEMOGLOBIN 8.5 g/dL (10.9-14.3); LYMPHOCYTES % (AUTO) 17.9 % (20.5-51.5); MEAN CORPUSCULAR HEMOGLOBIN 33.2 uug (24.7-32.8); MEAN CORPUSCULAR HGB CONC 34 g/dL (32.3-35.6); MEAN CORPUSCULAR VOLUME 97.7 fL (75.5-95.3); NEUTROPHILS # (AUTO) 7.7 K/uL (1.8-8.9); NEUTROPHILS % (AUTO) 70.2 % (38.5-71.5); PLATELET COUNT (AUTO) 393 K/uL (179-408); RED BLOOD CELL COUNT(AUTO) 2.57 MIL/uL (3.63-4.92); RED CELL DISTRIBUTION WIDTH 12.8 % (12.3-17.7)
[2024-07-09 08:17] LABS: ABG BASE EXCESS -5.1 mmol/L (-2.0-3.0); ABG PCO2 32.8 mmHg (32.0-45.0); ABG PH 7.381 (7.350-7.450); ABG PO2 65.5 mmHg (83.0-108.0); ABG SITE LEFT RADIAL; ABG TOTAL HEMOGLOBIN 13.5 G/dL (12.0-16.0); AaDO2 92.8 mmHg; COHb 0.9 % (0.5-1.5); MetHb 0.3 % (0.0-1.5); O2Hb 91.7 % (94.0-98.0)
[2024-07-09 08:24] LABS: ALANINE AMINOTRANSFERASE 12 U/L (14-59); ALBUMIN 1.9 g/dL (3.4-5.0); ALKALINE PHOSPHATASE 70 U/L (50-136); ASPARTATE AMINOTRANSFERASE 28 U/L (15-37); BILIRUBIN,DIRECT 0.1 mg/dL (0.0-0.2); BILIRUBIN,TOTAL 0.3 mg/dL (0.2-1.0); CALCIUM 6.2 mg/dL (8.5-10.1); CARBON DIOXIDE 22 mmol/L (21-32); CHLORIDE 113 mmol/L (98-107); CREATININE 1.1 mg/dL (0.6-1.3); GLUCOSE 115 mg/dL (74-106); POTASSIUM 3.8 mmol/L (3.5-5.1); SODIUM SERUM 143 mmol/L (136-145); TOTAL PROTEIN, SERUM 4.8 g/dL (6.4-8.2); UREA NITROGEN, BLOOD 26 mg/dL (7-18)
[2024-07-09 08:25] LABS: DIFFERENTIAL COMMENT 1
[2024-07-09] MEDS: GLIMEPIRIDE 2 MG TABLET PO SCH (08:44)
[2024-07-09] MEDS: PROTEIN SUPPLEMENT (PROSTAT) 30 ML LIQUID PO SCH (08:46)
[2024-07-09] MEDS: HYDROMORPHONE 1 MG/1 ML DISP.SYRIN IV PRN (13:27)
[2024-07-09] MEDS: NEUTRA PHOS PACKET PO ONE (17:04)
[2024-07-10] VITALS (11 sets, daily range): BP systolic 119–143; BP diastolic 46–58; TEMP 98.2–98.8; O2SAT 93–99
[2024-07-10 06:57] LABS: BASOPHILS # (AUTO) 0.1 K/UL (0.0-0.2); BASOPHILS % (AUTO) 0.6 % (0.0-2.0); EOSINOPHILS # (AUTO) 0.2 K/uL (0.0-0.7); EOSINOPHILS % (AUTO) 2.1 % (0.0-7.0); HEMATOCRIT 25.6 % (31.2-41.9); HEMOGLOBIN 8.6 g/dL (10.9-14.3); LYMPHOCYTES # (AUTO) 1.8 K/uL (0.8-4.8); LYMPHOCYTES % (AUTO) 16.2 % (20.5-51.5); MEAN CORPUSCULAR HEMOGLOBIN 33.9 uug (24.7-32.8); MEAN CORPUSCULAR HGB CONC 34 g/dL (32.3-35.6); MEAN CORPUSCULAR VOLUME 100.6 fL (75.5-95.3); MONOCYTES # (AUTO) 0.9 K/uL (0.1-1.30); MONOCYTES % (AUTO) 7.9 % (0.0-11.0); NEUTROPHILS # (AUTO) 8.3 K/uL (1.8-8.9); NEUTROPHILS % (AUTO) 73.2 % (38.5-71.5); PLATELET COUNT (AUTO) 366 K/uL (179-408); RED BLOOD CELL COUNT(AUTO) 2.55 MIL/uL (3.63-4.92); RED CELL DISTRIBUTION WIDTH 12.9 % (12.3-17.7); WHITE BLOOD COUNT (AUTO) 11.3 K/uL (3.8-11.8)
[2024-07-10 07:06] LABS: DIFFERENTIAL COMMENT 1
[2024-07-10 07:15] LABS: CARBON DIOXIDE 19 mmol/L (21-32); CHLORIDE 112 mmol/L (98-107); CREATININE 0.9 mg/dL (0.6-1.3); GLUCOSE 74 mg/dL (74-106); MAGNESIUM 2.1 mg/dL (1.8-2.4); PHOSPHOROUS 2.5 mg/dL (2.5-4.9); POTASSIUM 4.1 mmol/L (3.5-5.1); SODIUM SERUM 142 mmol/L (136-145); UREA NITROGEN, BLOOD 23 mg/dL (7-18)
[2024-07-10] MEDS: POTASSIUM CHLORIDE 20 MEQ POWDER PACKET PO ONE (13:16)
[2024-07-10] MEDS: ENOXAPARIN SODIUM 80 MG/0.8 ML DISP.SYRIN SQ SCH (13:17)
[2024-07-10] MEDS ORDERED: IBUPROFEN 600 MG TABLET PO PRN (13:45)
[2024-07-10] MEDS: DOCUSATE SODIUM 100 MG CAPSULE PO SCH (21:07)
[2024-07-10] MEDS: CALCIUM CARBONATE 500 MG TABLET PO SCH (21:08)
[2024-07-11] VITALS (10 sets, daily range): BP systolic 124–146; BP diastolic 39–59; TEMP 98.6–99.8; O2SAT 93–98
[2024-07-11 07:40] LABS: BASOPHILS # (AUTO) 0.1 K/UL (0.0-0.2); BASOPHILS % (AUTO) 0.5 % (0.0-2.0); EOSINOPHILS # (AUTO) 0.2 K/uL (0.0-0.7); EOSINOPHILS % (AUTO) 1.6 % (0.0-7.0); HEMATOCRIT 27.1 % (31.2-41.9); HEMOGLOBIN 9.3 g/dL (10.9-14.3); LYMPHOCYTES # (AUTO) 1.5 K/uL (0.8-4.8); LYMPHOCYTES % (AUTO) 9.6 % (20.5-51.5); MEAN CORPUSCULAR HEMOGLOBIN 33.3 uug (24.7-32.8); MEAN CORPUSCULAR HGB CONC 34 g/dL (32.3-35.6); MEAN CORPUSCULAR VOLUME 97.2 fL (75.5-95.3); MONOCYTES # (AUTO) 1.2 K/uL (0.1-1.30); MONOCYTES % (AUTO) 7.5 % (0.0-11.0); NEUTROPHILS # (AUTO) 12.4 K/uL (1.8-8.9); NEUTROPHILS % (AUTO) 80.8 % (38.5-71.5); PLATELET COUNT (AUTO) 409 K/uL (179-408); RED BLOOD CELL COUNT(AUTO) 2.79 MIL/uL (3.63-4.92); RED CELL DISTRIBUTION WIDTH 12.9 % (12.3-17.7); WHITE BLOOD COUNT (AUTO) 15.3 K/uL (3.8-11.8)
[2024-07-11 07:51] LABS: DIFFERENTIAL COMMENT 1
[2024-07-11 07:55] LABS: CALCIUM 6.2 mg/dL (8.5-10.1); CARBON DIOXIDE 22 mmol/L (21-32); CHLORIDE 110 mmol/L (98-107); CREATININE 0.9 mg/dL (0.6-1.3); GLUCOSE 97 mg/dL (74-106); MAGNESIUM 1.9 mg/dL (1.8-2.4); PHOSPHOROUS 1.9 mg/dL (2.5-4.9); SODIUM SERUM 142 mmol/L (136-145); UREA NITROGEN, BLOOD 20 mg/dL (7-18)
[2024-07-11] MEDS: ENOXAPARIN SODIUM 40 MG/0.4 ML DISP.SYRIN SQ SCH (08:51)
[2024-07-11] MEDS: MIRALAX 17 GM POWD.PACK PO SCH (08:57)
[2024-07-11 11:30] LABS: *OCCULT BLOOD STOOL NEGATIVE (NEGATIVE)
[2024-07-11] MEDS: NEUTRA PHOS PACKET PO ONE (15:21)
[2024-07-12] VITALS (11 sets, daily range): BP systolic 105–146; BP diastolic 41–52; TEMP 98.6–99.9; O2SAT 93–100
[2024-07-12 07:28] LABS: BASOPHILS # (AUTO) 0.1 K/UL (0.0-0.2); BASOPHILS % (AUTO) 0.7 % (0.0-2.0); EOSINOPHILS # (AUTO) 0.1 K/uL (0.0-0.7); EOSINOPHILS % (AUTO) 1.1 % (0.0-7.0); HEMATOCRIT 26.8 % (31.2-41.9); HEMOGLOBIN 9.2 g/dL (10.9-14.3); LYMPHOCYTES # (AUTO) 1.9 K/uL (0.8-4.8); LYMPHOCYTES % (AUTO) 18.2 % (20.5-51.5); MEAN CORPUSCULAR HEMOGLOBIN 33.3 uug (24.7-32.8); MEAN CORPUSCULAR HGB CONC 34 g/dL (32.3-35.6); MEAN CORPUSCULAR VOLUME 97.1 fL (75.5-95.3); MONOCYTES # (AUTO) 0.9 K/uL (0.1-1.30); MONOCYTES % (AUTO) 8.5 % (0.0-11.0); NEUTROPHILS # (AUTO) 7.6 K/uL (1.8-8.9); NEUTROPHILS % (AUTO) 71.5 % (38.5-71.5); PLATELET COUNT (AUTO) 403 K/uL (179-408); RED BLOOD CELL COUNT(AUTO) 2.76 MIL/uL (3.63-4.92); RED CELL DISTRIBUTION WIDTH 13.3 % (12.3-17.7); WHITE BLOOD COUNT (AUTO) 10.6 K/uL (3.8-11.8)
[2024-07-12 07:43] LABS: DIFFERENTIAL COMMENT 1
[2024-07-12 07:54] LABS: CALCIUM 6.3 mg/dL (8.5-10.1); CARBON DIOXIDE 22 mmol/L (21-32); CHLORIDE 108 mmol/L (98-107); CREATININE 0.8 mg/dL (0.6-1.3); GLUCOSE 82 mg/dL (74-106); PHOSPHOROUS 2.3 mg/dL (2.5-4.9); POTASSIUM 3.8 mmol/L (3.5-5.1); SODIUM SERUM 138 mmol/L (136-145); UREA NITROGEN, BLOOD 16 mg/dL (7-18)
[2024-07-12] MEDS: NEUTRA PHOS PACKET PO ONE (16:45)
[2024-07-12] MEDS: ACETAMINOPHEN 325 MG TABLET PO PRN (21:05)
[2024-07-13] VITALS (10 sets, daily range): BP systolic 113–145; BP diastolic 42–46; TEMP 97.7–99.4; O2SAT 94–98
[2024-07-13] MEDS: PANTOPRAZOLE SODIUM 40 MG TABLET.DR PO SCH (06:16)
[2024-07-13 07:55] LABS: BASOPHILS # (AUTO) 0.1 K/UL (0.0-0.2); BASOPHILS % (AUTO) 0.5 % (0.0-2.0); EOSINOPHILS # (AUTO) 0.1 K/uL (0.0-0.7); HEMATOCRIT 26.8 % (31.2-41.9); HEMOGLOBIN 8.9 g/dL (10.9-14.3); LYMPHOCYTES # (AUTO) 1.5 K/uL (0.8-4.8); LYMPHOCYTES % (AUTO) 13.4 % (20.5-51.5); MEAN CORPUSCULAR HEMOGLOBIN 33.6 uug (24.7-32.8); MEAN CORPUSCULAR HGB CONC 33 g/dL (32.3-35.6); MEAN CORPUSCULAR VOLUME 100.9 fL (75.5-95.3); MONOCYTES # (AUTO) 1.2 K/uL (0.1-1.30); MONOCYTES % (AUTO) 10.2 % (0.0-11.0); NEUTROPHILS # (AUTO) 8.5 K/uL (1.8-8.9); NEUTROPHILS % (AUTO) 74.9 % (38.5-71.5); PLATELET COUNT (AUTO) 341 K/uL (179-408); RED BLOOD CELL COUNT(AUTO) 2.66 MIL/uL (3.63-4.92); RED CELL DISTRIBUTION WIDTH 13.2 % (12.3-17.7); WHITE BLOOD COUNT (AUTO) 11.4 K/uL (3.8-11.8)
[2024-07-13 08:07] LABS: DIFFERENTIAL COMMENT 1
[2024-07-13 08:12] LABS: CALCIUM 6.8 mg/dL (8.5-10.1); CARBON DIOXIDE 20 mmol/L (21-32); CHLORIDE 106 mmol/L (98-107); CREATININE 0.8 mg/dL (0.6-1.3); GLUCOSE 84 mg/dL (74-106); MAGNESIUM 1.9 mg/dL (1.8-2.4); PHOSPHOROUS 2.3 mg/dL (2.5-4.9); POTASSIUM 4.1 mmol/L (3.5-5.1); SODIUM SERUM 137 mmol/L (136-145); UREA NITROGEN, BLOOD 14 mg/dL (7-18)
[2024-07-13] MEDS: NEUTRA PHOS PACKET PO ONE (16:33)
[2024-07-14] VITALS (15 sets, daily range): BP systolic 129–143; BP diastolic 40–49; TEMP 97–99.2; O2SAT 93–99
[2024-07-14] MEDS: PANTOPRAZOLE ORAL SUSPENSION 40 MG SUSPDR.PKT PO SCH (06:13)
[2024-07-14 07:05] LABS: CALCIUM 6.7 mg/dL (8.5-10.1); CARBON DIOXIDE 23 mmol/L (21-32); CHLORIDE 107 mmol/L (98-107); CREATININE 0.8 mg/dL (0.6-1.3); GLUCOSE 84 mg/dL (74-106); PHOSPHOROUS 2.3 mg/dL (2.5-4.9); POTASSIUM 4.1 mmol/L (3.5-5.1); SODIUM SERUM 138 mmol/L (136-145); UREA NITROGEN, BLOOD 13 mg/dL (7-18)
[2024-07-14] MEDS: DOCUSATE SODIUM 100 MG/10 ML LIQUID UDC PO SCH (09:00)
[2024-07-14] MEDS: NEUTRA PHOS PACKET PO ONE (16:49)
[2024-07-15 06:00] VITALS: BP 143/56; TEMP 98.9; O2SAT 95
[2024-07-15 07:34] VITALS: O2SAT 94
[2024-07-15 07:35] LABS: BASOPHILS % (AUTO) 0.5 % (0.0-2.0); EOSINOPHILS # (AUTO) 0.1 K/uL (0.0-0.7); EOSINOPHILS % (AUTO) 1.3 % (0.0-7.0); HEMATOCRIT 22.5 % (31.2-41.9); HEMOGLOBIN 7.8 g/dL (10.9-14.3); LYMPHOCYTES # (AUTO) 1.4 K/uL (0.8-4.8); LYMPHOCYTES % (AUTO) 17.3 % (20.5-51.5); MEAN CORPUSCULAR HEMOGLOBIN 33.5 uug (24.7-32.8); MEAN CORPUSCULAR HGB CONC 35 g/dL (32.3-35.6); MEAN CORPUSCULAR VOLUME 96.7 fL (75.5-95.3); MONOCYTES # (AUTO) 0.9 K/uL (0.1-1.30); MONOCYTES % (AUTO) 11.4 % (0.0-11.0); NEUTROPHILS # (AUTO) 5.7 K/uL (1.8-8.9); NEUTROPHILS % (AUTO) 69.5 % (38.5-71.5); PLATELET COUNT (AUTO) 290 K/uL (179-408); RED CELL DISTRIBUTION WIDTH 13.2 % (12.3-17.7); WHITE BLOOD COUNT (AUTO) 8.2 K/uL (3.8-11.8)
[2024-07-15 07:41] LABS: DIFFERENTIAL COMMENT 1; RED BLOOD CELL COUNT(AUTO) 2.33 MIL/uL (3.63-4.92)
[2024-07-15 07:46] LABS: CALCIUM 6.8 mg/dL (8.5-10.1); CARBON DIOXIDE 23 mmol/L (21-32); CHLORIDE 107 mmol/L (98-107); CREATININE 0.7 mg/dL (0.6-1.3); GLUCOSE 79 mg/dL (74-106); MAGNESIUM 1.6 mg/dL (1.8-2.4); PHOSPHOROUS 2.2 mg/dL (2.5-4.9); POTASSIUM 4.2 mmol/L (3.5-5.1); SODIUM SERUM 139 mmol/L (136-145); UREA NITROGEN, BLOOD 11 mg/dL (7-18)
[2024-07-15 07:49] VITALS: O2SAT 99
[2024-07-15] MEDS: GLUCERNA SHAKE 237 ML CAN PO SCH (09:15)
[2024-07-15] MEDS: MAGNESIUM SULFATE/D5W 100 ML IV SCH (09:33)
[2024-07-15 11:33] VITALS: BP 123/36; TEMP 98.4; O2SAT 93
[2024-07-15 13:20] VITALS: O2SAT 95
[2024-07-15 13:35] VITALS: O2SAT 99
== END 2024-07-15 15:10 | DRG 871 ==
LOC: ER 03:04 → TRANSITION 12:10 → TELE3 18:12 → MEDSURG3 07-04 11:03
PROVIDERS: ADMIT Nurse Practitioner Acute Care; ATTEND Nurse Practitioner Acute Care
DX: A41.9 Sepsis, unspecified organism (principal); J96.01 Acute respiratory failure with hypoxia; K68.9 Other disorders of retroperitoneum; K85.90 Acute pancreatitis without necrosis or infection, unspecified; J96.02 Acute respiratory failure with hypercapnia; E87.20 Acidosis, unspecified; E87.0 Hyperosmolality and hypernatremia; I50.32 Chronic diastolic (congestive) heart failure; I82.612 Acute embolism and thrombosis of superficial veins of left upper extremity; J45.901 Unspecified asthma with (acute) exacerbation; J98.11 Atelectasis; N17.9 Acute kidney failure, unspecified; N30.90 Cystitis, unspecified without hematuria; E78.5 Hyperlipidemia, unspecified; E83.51 Hypocalcemia; E83.42 Hypomagnesemia; E83.39 Other disorders of phosphorus metabolism; I11.0 Hypertensive heart disease with heart failure; I25.10 Atherosclerotic heart disease of native coronary artery without angina pectoris; Z86.73 Personal history of transient ischemic attack (TIA), and cerebral infarction without residual deficits; E66.9 Obesity, unspecified; Z68.35 Body mass index [BMI] 35.0-35.9, adult; E86.9 Volume depletion, unspecified; E11.9 Type 2 diabetes mellitus without complications; Z79.02 Long term (current) use of antithrombotics/antiplatelets; Z79.84 Long term (current) use of oral hypoglycemic drugs; Z79.899 Other long term (current) drug therapy; J44.89 Other specified chronic obstructive pulmonary disease; K57.30 Diverticulosis of large intestine without perforation or abscess without bleeding; M89.8X9 Other specified disorders of bone, unspecified site; Z79.4 Long term (current) use of insulin; Z88.0 Allergy status to penicillin
CPT/HCPCS: 36415; 36600; 71045; 73090; 76770; 82746; 82803; 83605; 83690; 83735; 84100; 85025; 86140; 86704; 86803; 87040; 87340; 87806; 93005; 94640; 94760; A4663; G0378; J0696; J0744; J1171; J1650; J1815; J2405; J2470; J2765; J3010; J3475; J3490; J3590; J7040; Q0162